=== PATIENT | female | born 1975 ===

== ENCOUNTER 2018-01-05 03:07 | Inpatient (IN) | payer MEDICAID, OTHER ==
[2018-01-05] MEDS ORDERED: Sodium Chloride 0.9% 1,000 ML IV STA ×2 (03:38→06:35)
[2018-01-05 04:19] LABS: BASO # 0.1 K/uL (0.0-0.2); BASO % 0.4 % (0.0-2.0); EOS % 0.1 % (0.0-4.0); HEMOGLOBIN 13.6 g/dL (12.0-16.0); LYMPH % 7.2 % (20.0-40.0); MEAN CELL VOLUME 83.3 fl (81.0-99.0); MEAN CORPUSCULAR HEMOGLOBIN 27.9 pg (27.0-31.0); MEAN CORPUSCULAR HGB CONC 33.5 g/dL (33.0-37.0); MEAN PLATELET VOLUME 8.8 fl (7.2-11.7); MONO # 0.4 K/uL (0.0-0.8); NEUT # 12.4 K/uL (1.8-7.0); NEUT % 89.3 % (50.0-75.0); PLATELET COUNT 249 K/uL (130-400); RBC 4.86 Mil/uL (3.80-5.20); RED CELL DISTRIBUTION WIDTH 13.7 % (11.5-14.5); WHITE BLOOD COUNT 13.9 K/uL (4.8-10.8)
[2018-01-05 04:30] LABS: ALB/GLOB RATIO 1.1 (1.0-2.1); ALBUMIN 4.4 g/dL (3.5-5.0); ALT/SGPT 36 U/L (9-52); AST/SGOT 25 U/L (14-36); BLOOD UREA NITROGEN 18 mg/dl (7-17); GFR AFRICAN-AMERICAN > 60; GFR NON-AFRICAN AMERICAN > 60; LIPASE 31 U/L (23-300)
[2018-01-05 05:10] LABS: LYMPHOCYTE 8 % (20-50); NEUTROPHIL 89 % (42-75); REACTIVE LYMPHOCYTES 3 % (0-0); TOTAL CELLS COUNTED 100
[2018-01-05 05:11] LABS: HYPOCHROMIC SLIGHT; STOMATOCYTES SLIGHT; TARGET CELLS SLIGHT
[2018-01-05 05:12] LABS: PLATELET ESTIMATE NORMAL (NORMAL)
--- NOTE | 2018-01-05 05:57 | ED PDOC ---
HPI: Abdomen Chief Complaint (Provider): Epigastric abdominal pain History Per: Patient History/Exam Limitations: no limitations Onset/Duration Of Symptoms: Hrs (Since 4pm) Outside of [place] travel?: No Current Symptoms Are (Timing): Still Present Severity: Severe Pain Scale Rating Of: 8 Location Of Pain/Discomfort: RUQ, Epigastric Quality Of Discomfort: Sharp Associated Symptoms: Nausea, Vomiting, Loss Of Appetite. denies: Fever, Chills , Diarrhea, Constipation, Urinary Symptoms Exacerbating Factors: None <Patricia Arellano - Last Filed: 01/05/18 05:59> <Obie Mauricio - Last Filed: 01/06/18 17:55> Time Seen by Provider: 01/05/18 03:14 Chief Complaint (Nursing): Abdominal Pain Additional Complaint(s): No similar in the past. PT states it began last night and she only ate breakfast yesterday. No fever/chills. (+) vomiting. (Patricia Arellano) Past Medical History Reviewed: Historical Data, Nursing Documentation, Vital Signs - Medical History PMH: No Chronic Diseases - Surgical History Surgical History: No Surg Hx - Family History Family History: States: No Known Family Hx - Living Arrangements Living Arrangements: With Family - Social History Current smoker - smoking cessation education provided: No <Patricia Arellano - Last Filed: 01/05/18 05:59> <Obie Mauricio - Last Filed: 01/06/18 17:55> Vital Signs: Last Vital Signs Temp 97.7 F 01/06/18 16:17 Pulse 78 01/06/18 16:17 Resp 18 01/06/18 16:17 BP 109/68 01/06/18 16:17 Pulse Ox 97 01/06/18 16:17 - Home Medications Home Medications: Ambulatory Orders Medication Instructions Recorded No Known Home Med 01/05/18 - Allergies Allergies/Adverse Reactions: Allergies Allergy/AdvReac Type Severity Reaction Status Date / Time almond Allergy ITCHING Verified 01/05/18 17:43 apple Allergy RASH Verified 01/05/18 03:20 carrot Allergy ITCHING Verified 01/05/18 17:43 celery Allergy ITCHING Verified 01/05/18 17:44 humphrey Allergy ITCHING Verified 01/05/18 17:44 kiwi Allergy RASH Verified 01/05/18 03:20 peach Allergy RASH Verified 01/05/18 03:20 plum Allergy ITCHING Verified 01/05/18 17:44 pollen extracts Allergy ITCHING Verified 01/05/18 17:41 Review of Systems ROS Statement: Except As Marked, All Systems Reviewed And Found Negative Constitutional: Negative for: Fever, Chills Gastrointestinal: Positive for: Nausea, Vomiting, Abdominal Pain <Patricia Arellano - Last Filed: 01/05/18 05:59> Physical Exam - Reviewed Nursing Documentation Reviewed: Yes Vital Signs Reviewed: Yes - Physical Exam Appears: Positive for: Well, Non-toxic, No Acute Distress Head Exam: Positive for: ATRAUMATIC, NORMAL INSPECTION, NORMOCEPHALIC Skin: Positive for: Normal Color, Warm, DRY Eye Exam: Positive for: Normal appearance ENT: Positive for: Normal ENT Inspection Neck: Positive for: Normal, Painless ROM Cardiovascular/Chest: Positive for: Regular Rate, Rhythm Respiratory: Positive for: CNT, Normal Breath Sounds Gastrointestinal/Abdominal: Positive for: Normal Exam, Soft, Tenderness ((+) RUQ tenderness, (+) Bowling's sign ) Back: Positive for: Normal Inspection Extremity: Positive for: Normal ROM Neurologic/Psych: Positive for: Alert, Oriented <Patricia Arellano - Last Filed: 01/05/18 05:59> - Laboratory Results Result Diagrams: 01/05/18 04:14 01/05/18 04:14 - ECG O2 Sat by Pulse Oximetry: 98 <Patricia Arellano - Last Filed: 01/05/18 05:59> - Laboratory Results Result Diagrams: 01/06/18 06:40 01/06/18 06:40 <Obie Mauricio - Last Filed: 01/06/18 17:55> Medical Decision Making <Patricia Arellano - Last Filed: 01/05/18 05:59> <Obie Mauricio - Last Filed: 01/06/18 17:55> Medical Decision Making: Labs normal. Endorsed pending (Patricia Arellano) [address] abdomen 0630 CT abdomen reveiwed. 0635 discussed the case with residential treatment specialist Dr Ramirez who will discuss with the team. [address] Davalos who will be on consult. Plans NPO Zosyn IV IVF (Obie Mauricio) Disposition - Patient ED Disposition Is Patient to be Admitted: Transfer of Care - Disposition Disposition: Transfer of Care Disposition Time: 06:12 <Patricia Arellano - Last Filed: 01/05/18 05:59> - Patient ED Disposition Is Patient to be Admitted: Yes Discussed With Dr.: Jared Atkins Doctor Will See Patient In The: ED Counseled Patient/Family Regarding: Studies Performed, Diagnosis - Pt Status Changed To: Hospital Disposition Of: Inpatient - Admit Certification Admit to Inpatient:: After my assessment, the patient will require hospitalization for at least two midnights. This is because of the severity of symptoms shown, intensity of services needed, and/or the medical risk in this patient being treated as an outpatient. - POA Present On Arrival: None <Obie Mauricio - Last Filed: 01/06/18 17:55> - Clinical Impression Clinical Impression: Abdominal pain, Acute cholecystitis - Disposition Condition: FAIR
--- NOTE | 2018-01-05 06:23 | CT ---
EXAM: CT Abdomen and Pelvis Without Intravenous Contrast CLINICAL HISTORY: 42 years old, female; Pain; Abdominal pain; Localized; Right upper quadrant (ruq); Additional info: Ruq pain, vomiting TECHNIQUE: Axial computed tomography images of the abdomen and pelvis without intravenous contrast. All CT scans at this facility use one or more dose reduction techniques, viz.: automated exposure control; ma/kV adjustment per patient size (including targeted exams where dose is matched to indication; i.e. head); or iterative reconstruction technique. 585 images are submitted. Coronal and sagittal reformatted images were created and reviewed. COMPARISON: No relevant prior studies available. FINDINGS: Lung bases: There is bibasilar atelectasis. ABDOMEN:Limitations: Absence of IV contrast decreases sensitivity for detecting vascular and visceral injury and abnormality. Liver: Unremarkable. Gallbladder and bile ducts: Gallbladder distention with multiple gallstones and possible gallbladder wall thickening. Correlation with clinical data is recommended if acute on chronic cholecystitis is clinically suspected. Pancreas: Unremarkable. No ductal dilation. Spleen: Unremarkable. No splenomegaly. Adrenals: Unremarkable. No mass. Kidneys and ureters: Unremarkable. No obstructing stones. No hydronephrosis. Stomach and bowel: Possible diverticulosis. No obstruction. No mucosal thickening.There are nonspecific fluid filled small bowel loops. These findings can represent ileus versus enteritis versus slow transit versus peristalsis. Appendix: Normal appendix. PELVIS: Bladder: There is nonspecific bladder wall thickening. This may be related to incomplete distention. Reproductive: Anteriorly displaced uterus. Bilateral ovarian follicles. ABDOMEN and PELVIS: Intraperitoneal space: Unremarkable. No free air. No significant fluid collection. Bones/joints: No acute fracture. No dislocation. Soft tissues: There is a fat-containing umbilical hernia. Vasculature: Unremarkable. No abdominal aortic aneurysm. Lymph nodes: Unremarkable. No enlarged lymph nodes. IMPRESSION: 1. Gallbladder distention with multiple gallstones and possible gallbladder wall thickening. Correlation with clinical data/LFTs is recommended if acute on chronic cholecystitis is clinically suspected.
[2018-01-05] MEDS ORDERED: Piperacillin/Tazobact 3.375 GM in Sodium Chloride 0.9% 100 ML IVPB STA (06:37)
[2018-01-05] MEDS ORDERED: Piperacillin/Tazobact 3.375 gm Inj IVPB ONE (06:50)
--- NOTE | 2018-01-05 07:44 | CP.PCM.CON ---
<Mehran Sahu - Last Filed: 01/05/18 08:06> History of Present Illness - History of Present Illness History of Present Illness: General Surgery Note for Dr. Davalos Reason for Consult: RUQ abdominal pain 42 F with no significant PMH presents to [facility] for complaint of RUQ abdominal pain. Patient was seen and evaluated in the ED. Patient states that pain began yesterday while at home. She reports sudden onset. She states that she has experienced this pain multiple times in the past. Patient states that she was not doing anything particularly when pain began and it was not associated with eating. She reports a few episods of nausea/vomtiing with NBNB emesis. She rates pain as moderate to severe. She describes pain as constant and sharp located in RUQ radiating to epigastrium and back bilaterally. She denies any allievating or aggravating factors. She denies recent illness or sick contacts. Denies fever/chills, chest pain, SOB, palpitations, diarrhea, constipation, incontinence, urinary symtpoms. PMH: denies Meds: MVM Allergy: kiwi, apple, peach PSH: x 2 FH: cholelithiasis Social: denies tobacco/EtOH/illicit drug, lives with Review of Systems - Review of Systems All systems: reviewed and no additional remarkable complaints except (as per HPI ) Past Patient History - Past Social History Smoking Status: Never Smoked - PSYCHIATRIC Hx Substance Use: No - SURGICAL HISTORY Hx Surgeries: Yes Hx Section: Yes - ANESTHESIA Hx Anesthesia: Yes Meds Allergies/Adverse Reactions: Allergies Allergy/AdvReac Type Severity Reaction Status Date / Time apple Allergy RASH Verified 01/05/18 03:20 kiwi Allergy RASH Verified 01/05/18 03:20 peach Allergy RASH Verified 01/05/18 03:20 - Medications Medications: Current Medications Piperacillin Sod/Tazobactam (Sod 3.375 gm/ Sodium Chloride) 100 mls @ 100 mls/ hr IVPB Q6 [facility] PRN Reason: Protocol Dextrose/Lactated Ringer's (Dextrose 5%/Lactated Ringer's) 1,000 mls @ 125 mls/ hr IV .Q8H [facility] Stop: 01/06/18 07:25 Morphine Sulfate (Morphine) 2 mg IVP Q4 PRN PRN Reason: Pain, severe (8-10) Physical Exam - Constitutional Appears: Non-toxic, No Acute Distress - Head Exam Head Exam: ATRAUMATIC, NORMOCEPHALIC - Eye Exam Eye Exam: EOMI, Normal appearance Pupil Exam: PERRL - ENT Exam ENT Exam: Mucous Membranes Moist - Respiratory Exam Respiratory Exam: NORMAL BREATHING PATTERN - Cardiovascular Exam Cardiovascular Exam: REGULAR RHYTHM - GI/Abdominal Exam GI & Abdominal Exam: Normal Bowel Sounds, Soft, Tenderness (RUQ). absent: Distended, Firm, Guarding, Hernia, Rebound, Rigid - Extremities Exam Extremities exam: Positive for: normal capillary refill, pedal pulses present. Negative for: calf tenderness - Back Exam Back exam: absent: CVA tenderness (L), CVA tenderness (R) - Neurological Exam Neurological exam: Alert, CN II-XII Intact, Oriented x3 - Psychiatric Exam Psychiatric exam: Normal Affect, Normal Mood - Skin Skin Exam: Dry, Intact, Normal Color, Warm Results - Vital Signs Recent Vital Signs: Last Vital Signs Temp 98.3 F 01/05/18 06:58 Pulse 80 01/05/18 06:58 Resp 16 01/05/18 06:58 BP 115/70 01/05/18 06:58 Pulse Ox 100 01/05/18 06:58 - Labs Result Diagrams: 01/05/18 04:14 01/05/18 04:14 Labs: Laboratory Results - last 24 hr 01/05/18 01/05/18 04:14 04:14 WBC 13.9 H RBC 4.86 Hgb 13.6 Hct 40.5 MCV 83.3 MCH 27.9 MCHC 33.5 RDW 13.7 Plt Count 249 MPV 8.8 Neut % (Auto) 89.3 H Lymph % (Auto) 7.2 L Hart % (Auto) 3.0 Eos % (Auto) 0.1 Baso % (Auto) 0.4 Neut # (Auto) 12.4 H Lymph # (Auto) 1.0 Hart # (Auto) 0.4 Eos # (Auto) 0.0 Baso # (Auto) 0.1 Neutrophils % (Manual) 89 H Lymphocytes % (Manual) 8 L Reactive Lymphs % 3 H Monocytes % (Manual) TEST NOT PERFORMED Platelet Estimate Normal Hypochromasia (manual) Slight Target Cells Slight Stomatocytes Slight Sodium 144 Potassium 3.8 Chloride 103 Carbon Dioxide 25 Anion Gap 20 BUN 18 H Creatinine 0.6 L Est GFR ( Amer) > 60 Est GFR (Non-Af Amer) > 60 Random Glucose 122 H Calcium 9.0 Total Bilirubin 0.5 AST 25 ALT 36 Alkaline Phosphatase 60 Total Protein 8.3 H Albumin 4.4 Globulin 3.9 Albumin/Globulin Ratio 1.1 Lipase 31 Assessment & Plan - Assessment and Plan (Free Text) Assessment: 42 F with acute cholecystitis Plan: -NPO -IV fluids -IV antibiotics -Analgesics/Anti-emetics PRN -Plan for lapacopic cholecystectomy Mon/Tu in [place] -Pre-op work up -Discussed with Dr. Anoop Sahu PGY1 <Augie Davalos - Last Filed: 01/05/18 17:09> History of Present Illness - History of Present Illness History of Present Illness: Patient was seen and examined at the bedside. Agree with resident's note above. Meds - Medications Medications: Current Medications Piperacillin Sod/Tazobactam (Sod 3.375 gm/ Sodium Chloride) 100 mls @ 100 mls/ hr IVPB Q6 [facility] PRN Reason: Protocol Last Admin: 01/05/18 11:43 Dose: 100 mls/hr Dextrose/Lactated Ringer's (Dextrose 5%/Lactated Ringer's) 1,000 mls @ 125 mls/ hr IV .Q8H [facility] Stop: 01/06/18 07:25 Last Admin: 01/05/18 09:57 Dose: 125 mls/hr Morphine Sulfate (Morphine) 2 mg IVP Q4 PRN PRN Reason: Pain, severe (8-10) Last Admin: 01/05/18 14:06 Dose: 2 mg Ondansetron HCl (Zofran Inj) 4 mg IVP Q6 PRN PRN Reason: Nausea/Vomiting Last Admin: 01/05/18 09:58 Dose: 4 mg Pantoprazole Sodium (Protonix Inj) 40 mg IVP DAILY [facility] Last Admin: 01/05/18 09:58 Dose: 40 mg Physical Exam - GI/Abdominal Exam Additional comments: soft, tender in the epigastrium and RUQ, ND, BS+, no rebound, no guarding, positive Bowling's sign, well healed scar from prior Results - Vital Signs Recent Vital Signs: Last Vital Signs Temp 98.4 F 01/05/18 16:32 Pulse 84 01/05/18 16:32 Resp 18 01/05/18 16:32 BP 115/74 01/05/18 16:32 Pulse Ox 99 01/05/18 16:32 - Labs Result Diagrams: 01/05/18 04:14 01/05/18 04:14 Labs: Laboratory Results - last 24 hr 01/05/18 01/05/18 04:14 04:14 WBC 13.9 H RBC 4.86 Hgb 13.6 Hct 40.5 MCV 83.3 MCH 27.9 MCHC 33.5 RDW 13.7 Plt Count 249 MPV 8.8 Neut % (Auto) 89.3 H Lymph % (Auto) 7.2 L Hart % (Auto) 3.0 Eos % (Auto) 0.1 Baso % (Auto) 0.4 Neut # (Auto) 12.4 H Lymph # (Auto) 1.0 Hart # (Auto) 0.4 Eos # (Auto) 0.0 Baso # (Auto) 0.1 Neutrophils % (Manual) 89 H Lymphocytes % (Manual) 8 L Reactive Lymphs % 3 H Monocytes % (Manual) TEST NOT PERFORMED Platelet Estimate Normal Hypochromasia (manual) Slight Target Cells Slight Stomatocytes Slight Sodium 144 Potassium 3.8 Chloride 103 Carbon Dioxide 25 Anion Gap 20 BUN 18 H Creatinine 0.6 L Est GFR ( Amer) > 60 Est GFR (Non-Af Amer) > 60 Random Glucose 122 H Calcium 9.0 Total Bilirubin 0.5 AST 25 ALT 36 Alkaline Phosphatase 60 Total Protein 8.3 H Albumin 4.4 Globulin 3.9 Albumin/Globulin Ratio 1.1 Lipase 31 - Imaging and Cardiology US - abdomen Status: Image reviewed by me, Report reviewed by me Assessment & Plan - Assessment and Plan (Free Text) Plan: - NPO - IV fluids - Zosyn - pain control - Zofran prn - Plan for cholecystectomy tomorrow - Will follow
--- NOTE | 2018-01-05 07:59 | CP.PCM.HP ---
History of Present Illness - History of Present Illness History of Present Illness: Chief Complaint: Epigastric and RUQ pain HPI: 42 y/o lady, no significant PMH , came in because of RUQ and epigastric pain. Patient states that for the past few months , she would wake up with some mild epigastric pain that would resolve on its own. However yesterday, at around 4 pm when she started having epigastric pain about 5/10 in intensity. She only had breakfast and no lunch except for some tea in the afternoon. The abdominal pain worsened all through the night now 8-9/10 in intensity and pain radiates to the RUQ and and to the back , accompanied by nausea and vomiting. She vomited about 5 times so she decided to come in to the ED. IN the ED , CT of the [place] showed multiple Gallstones and GB wall thickening and GB distention. WBC ct =13k. Present on Admission - Present on Admission Any Indicators Present on Admission: No Review of Systems - Review of Systems All systems: reviewed and no additional remarkable complaints except - Constitutional Constitutional: Anorexia. absent: Chills, Fever - EENT Eyes: absent: Change in Vision, Loss of Vision Ears: absent: Decreased Hearing, Ear Discharge, Ear Pain Nose/Mouth/Throat: absent: Epistaxis, Nasal Congestion, Nasal Discharge - Cardiovascular Cardiovascular: absent: Chest Pain, Chest Pain at Rest, Claudication, Diaphoresis, Dyspnea - Respiratory Respiratory: absent: Cough, Dyspnea, Hemoptysis - Gastrointestinal Gastrointestinal: Abdominal Pain, Bloating, Nausea, Vomiting. absent: Diarrhea , Hematemesis - Genitourinary Genitourinary: absent: Change in Urinary Stream, Difficulty Urinating, Dysuria - Musculoskeletal Musculoskeletal: Back Pain. absent: Abnormal Gait, Arthralgias, Muscle Weakness , Numbness - Integumentary Integumentary: absent: Rash, Skin Ulcer, Sores - Neurological Neurological: absent: Abnormal Gait, Dizziness, Focal Weakness, Headaches - Psychiatric Psychiatric: absent: Anxiety, Memory Loss, Suicidal Ideation - Endocrine Endocrine: absent: Polydipsia, Polyphagia, Polyuria - Hematologic/Lymphatic Hematologic: absent: Easy Bleeding, Easy Bruising, Lymphadenopathy Past Patient History - Infectious Disease Hx of Infectious Diseases: None - Tetanus Immunizations Tetanus Immunization: Unknown - Past Medical History & Family History Past Medical History?: No Past Family History: Reviewed and not pertinent Pertinent Family History: Mother : HTN - Past Social History Smoking Status: Never Smoked Chewing Tobacco Use: No Cigar Use: No Alcohol: None Drugs: Denies Home Situation {Lives}: With Family Domestic Violence: Negative - CARDIAC Hx Cardiac Disorders: No - PULMONARY Hx Respiratory Disorders: No - NEUROLOGICAL Hx Neurological Disorder: No - HEENT Hx HEENT Problems: No - RENAL Hx Chronic Kidney Disease: No - ENDOCRINE/METABOLIC Hx Endocrine Disorders: No - HEMATOLOGICAL/ONCOLOGICAL Hx Blood Disorders: No - INTEGUMENTARY Hx Dermatological Problems: No - MUSCULOSKELETAL/RHEUMATOLOGICAL Hx Musculoskeletal Disorders: No - GASTROINTESTINAL Hx Gastrointestinal Disorders: No - GENITOURINARY/GYNECOLOGICAL Hx Genitourinary Disorders: No - PSYCHIATRIC Hx Psychophysiologic Disorder: No Hx Substance Use: No - SURGICAL HISTORY Hx Surgeries: Yes Hx Section: Yes - ANESTHESIA Hx Anesthesia: Yes Hx Anesthesia Reactions: No Meds Allergies/Adverse Reactions: Allergies Allergy/AdvReac Type Severity Reaction Status Date / Time apple Allergy RASH Verified 01/05/18 03:20 kiwi Allergy RASH Verified 01/05/18 03:20 peach Allergy RASH Verified 01/05/18 03:20 Physical Exam - Constitutional Appears: Non-toxic, No Acute Distress - Head Exam Head Exam: ATRAUMATIC, NORMAL INSPECTION, NORMOCEPHALIC - Eye Exam Eye Exam: EOMI, Normal appearance, PERRL Pupil Exam: NORMAL ACCOMODATION - ENT Exam ENT Exam: Mucous Membranes Dry, Normal External Ear Exam - Neck Exam Neck exam: Positive for: Full Rom. Negative for: Meningismus - Respiratory Exam Respiratory Exam: NORMAL BREATHING PATTERN. absent: Rales, Wheezes, Respiratory Distress - Cardiovascular Exam Cardiovascular Exam: REGULAR RHYTHM, +S1, +S2 - GI/Abdominal Exam GI & Abdominal Exam: Normal Bowel Sounds, Soft, Tenderness. absent: Guarding - Extremities Exam Extremities exam: Positive for: full ROM, normal capillary refill, normal inspection, pedal pulses present. Negative for: calf tenderness, pedal edema - Back Exam Back exam: FULL ROM, NORMAL INSPECTION. absent: CVA tenderness (L), CVA tenderness (R), paraspinal tenderness, vertebral tenderness - Neurological Exam Neurological exam: Alert, CN II-XII Intact, Oriented x3, Reflexes Normal - Psychiatric Exam Psychiatric exam: Normal Affect, Normal Mood - Skin Skin Exam: Dry, Intact, Normal Color, Warm Results - Vital Signs Recent Vital Signs: Last Vital Signs Temp 98.3 F 04/22/18 06:58 Pulse 80 01/05/18 06:58 Resp 16 01/05/18 06:58 BP 115/70 01/05/18 06:58 Pulse Ox 100 01/05/18 06:58 - Labs Result Diagrams: 01/05/18 04:14 01/05/18 04:14 Labs: Laboratory Results - last 24 hr 01/05/18 01/05/18 04:14 04:14 WBC 13.9 H RBC 4.86 Hgb 13.6 Hct 40.5 MCV 83.3 MCH 27.9 MCHC 33.5 RDW 13.7 Plt Count 249 MPV 8.8 Neut % (Auto) 89.3 H Lymph % (Auto) 7.2 L [place] % (Auto) 3.0 Eos % (Auto) 0.1 Baso % (Auto) 0.4 Neut # (Auto) 12.4 H Lymph # (Auto) 1.0 [place] # (Auto) 0.4 Eos # (Auto) 0.0 Baso # (Auto) 0.1 Neutrophils % (Manual) 89 H Lymphocytes % (Manual) 8 L Reactive Lymphs % 3 H Monocytes % (Manual) TEST NOT PERFORMED Platelet Estimate Normal Hypochromasia (manual) Slight Target Cells Slight Stomatocytes Slight Sodium 144 Potassium 3.8 Chloride 103 Carbon Dioxide 25 Anion Gap 20 BUN 18 H Creatinine 0.6 L Est GFR ( Amer) > 60 Est GFR (Non-Af Amer) > 60 Random Glucose 122 H Calcium 9.0 Total Bilirubin 0.5 AST 25 ALT 36 Alkaline Phosphatase 60 Total Protein 8.3 H Albumin 4.4 Globulin 3.9 Albumin/Globulin Ratio 1.1 Lipase 31 - EKG Data EKG Interpreted by: Myself EKG shows normal: Sinus rhythm Rate: Normal - Imaging and Cardiology CT scan - abdomen Status: Image reviewed by me, Report reviewed by me Additional comment: Gallbladder distention with multiple gallstones and possible gallbladder wall thickening. Correlation with clinical data/LFTs is recommended if acute on chronic cholecystitis is clinically suspected. Assessment & Plan (1) Acute calculous cholecystitis Status: Acute Comment: CT scan of abd : Gallbladder distention with multiple gallstones and possible gallbladder. wall thickening. Admit pt to Med Surg. Keep NPO. IVF hydration. Surgery consult: Dr Kofman. Pain mgt with IV Morphine prn. Start IV Zosyn. Pt has good cardiac function - greater than 4 mets , walks 4 miles daily without any sxs. Lowcardiac risk for surgery. (2) DVT prophylaxis Status: Acute Comment: SCD for now as pt may go for surgery Decision To Admit - Pt Status Changed To: Hospital Disposition Of: Inpatient - Admit Certification Admit to Inpatient:: After my assessment, the patient will require hospitalization for at least two midnights. This is because of the severity of symptoms shown, intensity of services needed, and/or the medical risk in this patient being treated as an outpatient. - . Bed Request Type: Med/Surg Admitting Physician: Renetta Grimes
--- NOTE | 2018-01-05 09:18 | US ---
HISTORY: RUQ pain, vomiting COMPARISON: Preceding CT scan of the abdomen pelvis performed approximately 4 hours prior. TECHNIQUE: Sonographic evaluation of the right upper quadrant of the abdomen. FINDINGS: LIVER: Measures 13.4 cm in length. Normal echogenicity of the liver parenchyma. No mass. No intrahepatic bile duct dilatation. GALLBLADDER: Cholelithiasis with gallbladder wall thickening common per without pericholecystic fluid. Sonographic Bowling's sign was not elicited. COMMON BILE DUCT: Measures 5 mm. No stones. No dilatation. PANCREAS: Unremarkable as visualized. No mass. No ductal dilatation. RIGHT KIDNEY: Measures 11.4 x 4.5 x 4.2 cm in length. Normal echogenicity. No calculus, mass, or hydronephrosis. AORTA: No aneurysmal dilatation. IVC: Unremarkable. OTHER FINDINGS: None . IMPRESSION: Cholelithiasis with gallbladder wall thickening, but without pericholecystic fluid. Sonographic Bowling's sign was not elicited. Findings are equivocal for acute cholecystitis. Nuclear medicine HIDA scan can be obtained to further evaluate patency of the cystic duct as clinically warranted.
[2018-01-05] MEDS: Piperacillin/Tazobact 3.375 GM in Sodium Chloride 0.9% 100 ML IVPB SCH ×4 (09:54→21:32)
[2018-01-05] MEDS: Dextrose 5%/Lactated Ringer's 1,000 ML IV SCH ×3 (09:57→23:30)
--- NOTE | 2018-01-05 10:40 | CARD ---
APPROVED REPORT EKG Measurement Heart [id number] <Conclusion> Normal sinus rhythm Normal ECG
[2018-01-06] MEDS: Piperacillin/Tazobact 3.375 GM in Sodium Chloride 0.9% 100 ML IVPB SCH ×4 (03:46→21:40)
[2018-01-06] MEDS: Dextrose 5%/Lactated Ringer's 1,000 ML IV SCH (03:47)
[2018-01-06 07:29] LABS: BASO % 0.2 % (0.0-2.0); EOS # 0.3 K/uL (0.0-0.7); HEMOGLOBIN 13.1 g/dL (12.0-16.0); LYMPH # 2.8 K/uL (1.0-4.3); LYMPH % 20.4 % (20.0-40.0); MEAN CELL VOLUME 83.9 fl (81.0-99.0); MEAN CORPUSCULAR HEMOGLOBIN 27.8 pg (27.0-31.0); MEAN CORPUSCULAR HGB CONC 33.2 g/dL (33.0-37.0); MEAN PLATELET VOLUME 9.5 fl (7.2-11.7); MONO # 1.2 K/uL (0.0-0.8); NEUT # 9.3 K/uL (1.8-7.0); NEUT % 68.4 % (50.0-75.0); RBC 4.72 Mil/uL (3.80-5.20); WHITE BLOOD COUNT 13.6 K/uL (4.8-10.8)
[2018-01-06 07:36] LABS: INR 1.1 (0.9-1.2); PARTIAL THROMBOPLASTIN TIME 30.3 Seconds (25.6-37.1); PROTHROMBIN TIME 12.4 Seconds (9.8-13.1)
[2018-01-06 07:46] LABS: ALB/GLOB RATIO 1.1 (1.0-2.1); ALBUMIN 3.8 g/dL (3.5-5.0); ALT/SGPT 35 U/L (9-52); AST/SGOT 24 U/L (14-36); BLOOD UREA NITROGEN 7 mg/dl (7-17); CALCIUM 8.5 mg/dL (8.4-10.2); GFR AFRICAN-AMERICAN > 60; GFR NON-AFRICAN AMERICAN > 60
[2018-01-06] MEDS ORDERED: Midazolam 2 MG/2 ML VIAL ONE (11:38)
[2018-01-06] MEDS ORDERED: Propofol 10 mg/ml Inj (20 ML) ONE (11:38)
[2018-01-06] MEDS ORDERED: Succinylcholine 200 mg/10 ml Inj IV ONE (11:39)
[2018-01-06] MEDS ORDERED: Lidocaine 4% (Laryng-O-Jet) Kit MM ONE (11:39)
[2018-01-06] MEDS ORDERED: Lidocaine 1% 5ml Abboject IV ONE (11:39)
[2018-01-06] MEDS ORDERED: Lactated Ringer's 1,000 ML IV ONE ×2 (11:45→14:56)
[2018-01-06] MEDS ORDERED: Rocuronium 10 mg/ml (5 ml) ONE (11:52)
[2018-01-06] MEDS ORDERED: Bupivacaine 0.5% Inj(30mL) ONE (12:11)
[2018-01-06] MEDS ORDERED: Lidocaine 1% Inj (20ml) IJ ONE ×2 (12:14→13:23)
--- NOTE | 2018-01-06 12:46 | CP.PCM.PN ---
Subjective - Date & Time of Evaluation Date of Evaluation: 01/06/18 Time of Evaluation: 12:46 - Subjective Subjective: mild discomfort in RUQ for LAP JAQUELINE today NPO no complaints HD stable NAD Objective - Vital Signs/Intake and Output Vital Signs (last 24 hours): Temp Pulse Resp BP Pulse Ox 98.6 F 73 20 105/70 98 01/06/18 08:07 01/06/18 08:07 01/06/18 08:07 01/06/18 08:07 01/06/18 08:07 Intake and Output: 01/06/18 01/06/18 06:59 18:59 Intake Total 400 Balance 400 - Medications Medications: Current Medications Piperacillin Sod/Tazobactam (Sod 3.375 gm/ Sodium Chloride) 100 mls @ 100 mls/ hr IVPB Q6 [place] PRN Reason: Protocol Last Admin: 01/06/18 09:39 Dose: 100 mls/hr Morphine Sulfate (Morphine) 2 mg IVP Q4 PRN PRN Reason: Pain, severe (8-10) Last Admin: 01/05/18 14:06 Dose: 2 mg Ondansetron HCl (Zofran Inj) 4 mg IVP Q6 PRN PRN Reason: Nausea/Vomiting Last Admin: 01/05/18 09:58 Dose: 4 mg Pantoprazole Sodium (Protonix Inj) 40 mg IVP DAILY [place] Last Admin: 01/06/18 09:40 Dose: 40 mg - Labs Labs: 01/06/18 06:40 01/06/18 06:40 PT 12.4 Seconds (9.8-13.1) 01/06/18 06:40 INR 1.1 (0.9-1.2) 01/06/18 06:40 APTT 30.3 Seconds (25.6-37.1) 01/06/18 06:40 - Additional Findings Additional findings: General: awake, alert HEENT: NCAT, PERRL, EOMI HEART: RRR, S1, S2 no MRG LUNG: CTAB, no WRR ABD: soft, MILD TENDERNESS RUQ, ND, no mass, no HSM EXT: warm, well perfused NEURO: awake, alert SKIN: warm, dry PSYCH: normal mood, normal affect Assessment and Plan - Assessment and Plan (Free Text) Plan: 42 y/o lady, no significant PMH , came in because of RUQ and epigastric pain. Patient states that for the past few months , she would wake up with some mild epigastric pain that would resolve on its own. However yesterday, at around 4 pm when she started having epigastric pain about 5/10 in intensity. She only had breakfast and no lunch except for some tea in the afternoon. The abdominal pain worsened all through the night now 8-9/10 in intensity and pain radiates to the RUQ and and to the back , accompanied by nausea and vomiting. She vomited about 5 times so she decided to come in to the ED. IN the ED , CT of the [facility] showed multiple Gallstones and GB wall thickening and GB distention. WBC ct =13k. (1) Acute calculous cholecystitis Status: Acute Comment: CT scan of abd : Gallbladder distention with multiple gallstones and possible gallbladder. wall thickening. Admit pt to Med Surg. Keep NPO. IVF hydration. Surgery consult: Dr Davalos. Pain mgt with IV Morphine prn. Start IV Zosyn. Pt has good cardiac function - greater than 4 mets , walks 4 miles daily without any sxs. Lowcardiac risk for surgery. FOR LAP JAQUELINE today (2) DVT prophylaxis Status: Acute Comment: SCD for now as pt may go for surgery
[2018-01-06] MEDS ORDERED: Lactated Ringer's 500 ML IV ONE (12:50)
[2018-01-06] MEDS ORDERED: HYDROmorphone 0.5 mg/0.5 ml ISec IVP PRN (13:33)
--- NOTE | 2018-01-06 13:42 | PCM.SURG1 ---
Surgeon's Initial Post Op Note - Surgeon's Notes Surgeon: MD Anoop Engine Head Repairer: Stephanie, PGY2. BRITTA [place]aya, PGY1. Pre-Operative Diagnosis: Acute cholecystitis Operative Findings: inflammed gallbladder Post-Operative Diagnosis: Acute cholecystitis Operation Performed: Laparoscopic cholecystectomy Specimen/Specimens Removed: Gallbladder Estimated Blood Loss: EBL {In ML}: 5 Date of Surgery/Procedure: 01/06/18 Time of Surgery/Procedure: 11:30
[2018-01-06] MEDS ORDERED: Oxycodone/Acetaminophen 5/325 mg Tab PO PRN (13:50)
--- NOTE | 2018-01-06 14:39 | OP ---
PROCEDURE DATE: PREOPERATIVE DIAGNOSIS: Acute cholecystitis. POSTOPERATIVE DIAGNOSIS: Acute cholecystitis. PROCEDURE: Laparoscopic cholecystectomy. SURGEON: Augie Davalos MD BROOMCORN THRESHER: TYPE OF ANESTHESIA: General endotracheal intubation. IV FLUID INTAKE: Crystalloids. ESTIMATED BLOOD LOSS: 20 mL. INTRAOPERATIVE FINDINGS: Acute cholecystitis. SPECIMENS: Gallbladder with stones. BRIEF HISTORY: Ms. Darling is a very pleasant 42-year-old female who came to the hospital complaining of epigastric right upper quadrant abdominal pain and upon further investigation was found to have acute cholecystitis. All the risks and benefits of the procedure were explained to the patient and with the patient having a full understanding of all the risks and benefits involved, informed consent was obtained and the patient was taken to the operating room for above-stated procedure. DESCRIPTION OF PROCEDURE: The patient was brought into the operating room and placed supine on the operating room table. Bilateral Flowtron boots were applied to the patient's lower extremities. After successful induction of anesthesia and successful endotracheal intubation by the anesthesia team, the patient's abdomen was prepped with ChloraPrep stick and draped in a standard surgical fashion. Prior to the beginning of the procedure, a time-out was called in the room and everyone in the room were in agreement. Using Veress needle, the patient's abdomen was entered at the umbilicus and pneumoperitoneum was achieved with good opening pressures. Once this was accomplished, using an 11 blade scalpel knife, approximately 1-cm incision was made longitudinally in umbilicus and subsequent to that, an 11-mm trocar was introduced into the patient's abdomen. At this point in time, 5-mm 0-degree scope was introduced into the patient's abdomen and the abdomen was inspected. We immediately were able to visualize the gallbladder that appeared to be distended and inflamed. Then attention was turned to the subxiphoid area. Using 11-blade scalpel knife, 5-mm incision was made in a transverse fashion and subsequent to that, 5-mm trocar was introduced into the patient's abdomen. Now attention was turned to the right side of the patient's abdomen. Using an 11 blade scalpel knife, two 5-mm incisions were made in the right side of the patient's abdomen with an 11 blade knife and subsequent to that, another two 5-mm trocars were introduced into the patient's abdomen. At this point in time, using graspers, the gallbladder was grasped to the fundus and infundibulum, and using [place] dissector, cystic duct and cystic artery were dissected out and critical view of safety was achieved. At this point in time, cystic duct was clipped with 2 clips proximal and one distal and transected with laparoscopic scissors. Same thing was done for the cystic artery; it was clipped with 2 clips proximal and one distal, and transected with laparoscopic scissors. At this point in time, gallbladder was dissected off the gallbladder fossa using hook electrocautery. Once the gallbladder was completely freed up from the gallbladder fossa, EndoCatch bag was introduced into the patient's abdomen. Gallbladder was placed inside of the bag and the bag was closed. At this point in time, gallbladder fossa was inspected for hemostasis. Hemostasis was achieved with hook electrocautery. Subsequent to that, the patient's abdominal cavity and gallbladder fossa were copiously irrigated and the fluid was suctioned out. Once this was accomplished, an 11-mm trocar together with the EndoCatch bag and gallbladder were removed from the patient's abdomen and passed off to the [facility] as a specimen. Fascial layer at the umbilical port site was closed with three interrupted 0 Vicryl sutures on UR-5 and UR-6 needles. Subsequent to that, the patient's abdomen was fully de-sufflated. The rest of the trocars were removed from the patient's abdomen and the skin was closed with 4-0 Monocryl suture in a running subcuticular fashion. At the end of the procedure, incision sites were infiltrated with Marcaine anesthetic. The patient's abdomen was washed and dried, and Dermabond was applied to the side of the incisions. The patient was successfully extubated by the anesthesia team, transferred to the [facility], and taken to the recovery room in a stable condition. At the end of the procedure, all instrument counts, needles, and sponges were correct. Augie Davalos MD
[2018-01-06 16:18] VITALS: RESP 18
[2018-01-07] MEDS: Lactated Ringer's 1,000 ML IV SCH ×2 (02:44→04:10)
[2018-01-07] MEDS: Piperacillin/Tazobact 3.375 GM in Sodium Chloride 0.9% 100 ML IVPB SCH ×2 (04:10→09:37)
[2018-01-07 07:05] LABS: HEMOGLOBIN 11.3 g/dL (12.0-16.0); MEAN CELL VOLUME 83.7 fl (81.0-99.0); MEAN CORPUSCULAR HEMOGLOBIN 27.8 pg (27.0-31.0); MEAN CORPUSCULAR HGB CONC 33.2 g/dL (33.0-37.0); RBC 4.09 Mil/uL (3.80-5.20); RED CELL DISTRIBUTION WIDTH 13.4 % (11.5-14.5); WHITE BLOOD COUNT 12.5 K/uL (4.8-10.8)
[2018-01-07 07:33] LABS: BLOOD UREA NITROGEN 8 mg/dl (7-17); CALCIUM 8.3 mg/dL (8.4-10.2); GFR AFRICAN-AMERICAN > 60; GFR NON-AFRICAN AMERICAN > 60
--- NOTE | 2018-01-07 07:54 | CP.PCM.PN ---
Subjective - Date & Time of Evaluation Date of Evaluation: 01/07/18 Time of Evaluation: 07:30 - Subjective Subjective: General Surgery Note for Dr. Davalos Patient seen and examined at bedside. No acute event overnight. She is s/p Laparoscopic cholecystectomy POD#1. Patient is complaining of mild pain near surgical sites. Denies fever/chills or nausea/vomiting. Passing gas and tolerating diet. No other complaints at this time. Objective - Vital Signs/Intake and Output Vital Signs (last 24 hours): Temp Pulse Resp BP Pulse Ox 98.1 F 83 18 103/67 97 01/07/18 03:24 01/07/18 03:24 01/07/18 03:24 01/07/18 03:24 01/07/18 03:24 - Medications Medications: Current Medications Piperacillin Sod/Tazobactam (Sod 3.375 gm/ Sodium Chloride) 100 mls @ 100 mls/ hr IVPB Q6 [place] PRN Reason: Protocol Last Admin: 01/07/18 04:10 Dose: 100 mls/hr Lactated Ringer's (Lactated Ringer's) 1,000 mls @ 100 mls/hr IV .Q10H [place] Last Admin: 01/07/18 04:10 Dose: 100 mls/hr Morphine Sulfate (Morphine) 2 mg IVP Q4 PRN PRN Reason: Pain, severe (8-10) Last Admin: 01/05/18 14:06 Dose: 2 mg Ondansetron HCl (Zofran Inj) 4 mg IVP Q6 PRN PRN Reason: Nausea/Vomiting Last Admin: 01/05/18 09:58 Dose: 4 mg Oxycodone/Acetaminophen (Percocet 5/325 Mg Tab) 1 tab PO Q4 PRN PRN Reason: Pain, severe (8-10) Stop: 01/09/18 13:51 Last Admin: 01/06/18 21:50 Dose: 1 tab Pantoprazole Sodium (Protonix Inj) 40 mg IVP DAILY [place] Last Admin: 01/06/18 09:40 Dose: 40 mg - Labs Labs: 01/07/18 06:30 01/07/18 06:30 PT 12.4 Seconds (9.8-13.1) 01/06/18 06:40 INR 1.1 (0.9-1.2) 01/06/18 06:40 APTT 30.3 Seconds (25.6-37.1) 01/06/18 06:40 - Constitutional Appears: No Acute Distress - Head Exam Head Exam: ATRAUMATIC, NORMOCEPHALIC - Eye Exam Eye Exam: Normal appearance - ENT Exam ENT Exam: Mucous Membranes Moist - Respiratory Exam Respiratory Exam: NORMAL BREATHING PATTERN - Cardiovascular Exam Cardiovascular Exam: REGULAR RHYTHM - GI/Abdominal Exam GI & Abdominal Exam: Soft, Normal Bowel Sounds. absent: Distended, Firm, Guarding, Rigid, Tenderness, Rebound Additional comments: surgical sites clean, dry, and intact - Extremities Exam Extremities Exam: Normal Capillary Refill - Neurological Exam Neurological Exam: Alert, Awake, CN II-XII Intact, Normal Gait, Oriented x3 - Psychiatric Exam Psychiatric exam: Normal Affect, Normal Mood - Skin Skin Exam: Dry, Intact, Normal Color, Warm Assessment and Plan - Assessment and Plan (Free Text) Assessment: 42 F s/p laparoscopic cholecystectomy POD#1 Plan: -Regular diet -Clear for discharge from surgical standpoint -Augmentin for 5 days -Keep area clean and dry -Follow up as outpatient with Dr. Davalos in 1-2 weeks -Discussed with Dr. Anoop Sahu PGY1
[2018-01-07 08:39] VITALS: BP 109/72; PULSE 68; TEMP 98.6; O2SAT 96
--- NOTE | 2018-01-07 11:29 | CP.PCM.DIS ---
Provider - Provider Date of Admission: 01/05/18 06:37 Attending physician: Jared Atkins Time Spent in preparation of Discharge (in minutes): 30 Diagnosis - Discharge Diagnosis (1) Acute calculous cholecystitis Status: Acute Hospital Course - Lab Results Lab Results: Most Recent Lab Values WBC 12.5 K/uL (4.8-10.8) H 01/07/18 06:30 RBC 4.09 Mil/uL (3.80-5.20) 01/07/18 06:30 Hgb 11.3 g/dL (12.0-16.0) L 01/07/18 06:30 Hct 34.2 % (34.0-47.0) 01/07/18 06:30 MCV 83.7 fl (81.0-99.0) 01/07/18 06:30 MCH 27.8 pg (27.0-31.0) 01/07/18 06:30 MCHC 33.2 g/dL (33.0-37.0) 01/07/18 06:30 RDW 13.4 % (11.5-14.5) 01/07/18 06:30 Plt Count 189 K/uL (130-400) 01/07/18 06:30 MPV 9.5 fl (7.2-11.7) 01/06/18 06:40 Neut % (Auto) 68.4 % (50.0-75.0) 01/06/18 06:40 Lymph % (Auto) 20.4 % (20.0-40.0) 01/06/18 06:40 [place] % (Auto) 9.0 % (0.0-10.0) 01/06/18 06:40 Eos % (Auto) 2.0 % (0.0-4.0) 01/06/18 06:40 Baso % (Auto) 0.2 % (0.0-2.0) 01/06/18 06:40 Neut # (Auto) 9.3 K/uL (1.8-7.0) H 01/06/18 06:40 Lymph # (Auto) 2.8 K/uL (1.0-4.3) 01/06/18 06:40 [place] # (Auto) 1.2 K/uL (0.0-0.8) H 01/06/18 06:40 Eos # (Auto) 0.3 K/uL (0.0-0.7) 01/06/18 06:40 Baso # (Auto) 0.0 K/uL (0.0-0.2) 01/06/18 06:40 Neutrophils % (Manual) 89 % (42-75) H 01/05/18 04:14 Lymphocytes % (Manual) 8 % (20-50) L 01/05/18 04:14 Reactive Lymphs % 3 % (0-0) H 01/05/18 04:14 Monocytes % (Manual) TEST NOT PERFORMED 01/05/18 04:14 Platelet Estimate Normal (NORMAL) 01/05/18 04:14 Hypochromasia (manual) Slight 01/05/18 04:14 Target Cells Slight 01/05/18 04:14 Stomatocytes Slight 01/05/18 04:14 PT 12.4 Seconds (9.8-13.1) 01/06/18 06:40 INR 1.1 (0.9-1.2) 01/06/18 06:40 APTT 30.3 Seconds (25.6-37.1) 01/06/18 06:40 Sodium 140 mmol/l (132-148) 01/07/18 06:30 Potassium 3.3 MMOL/L (3.6-5.0) L 01/07/18 06:30 Chloride 104 mmol/L (98-107) 01/07/18 06:30 Carbon Dioxide 29 mmol/L (22-30) 01/07/18 06:30 Anion Gap 10 (10-20) 01/07/18 06:30 BUN 8 mg/dl (7-17) 01/07/18 06:30 Creatinine 0.7 mg/dl (0.7-1.2) 01/07/18 06:30 Est GFR ( Amer) > 60 01/07/18 06:30 Est GFR (Non-Af Amer) > 60 01/07/18 06:30 Random Glucose 84 mg/dL (65-105) 01/07/18 06:30 Calcium 8.3 mg/dL (8.4-10.2) L 01/07/18 06:30 Total Bilirubin 1.3 mg/dl (0.2-1.3) 01/06/18 06:40 AST 24 U/L (14-36) 01/06/18 06:40 ALT 35 U/L (9-52) 01/06/18 06:40 Alkaline Phosphatase 46 U/L (38-126) 01/06/18 06:40 Total Protein 7.3 G/DL (6.3-8.2) 01/06/18 06:40 Albumin 3.8 g/dL (3.5-5.0) 01/06/18 06:40 Globulin 3.5 gm/dL (2.2-3.9) 01/06/18 06:40 Albumin/Globulin Ratio 1.1 (1.0-2.1) 01/06/18 06:40 Lipase 31 U/L (23-300) 01/05/18 04:14 Blood Type O POSITIVE 01/06/18 06:40 Blood Type Confirm O POSITIVE 01/06/18 09:10 Antibody Screen Negative 01/06/18 06:40 BBK History Checked No verified bt 01/06/18 06:40 - Hospital Course Hospital Course: 42 y/o lady, no significant PMH , came in because of RUQ and epigastric pain. Patient states that for the past few months , she would wake up with some mild epigastric pain that would resolve on its own. However yesterday, at around 4 pm when she started having epigastric pain about 5/10 in intensity. She only had breakfast and no lunch except for some tea in the afternoon. The abdominal pain worsened all through the night now 8-9/10 in intensity and pain radiates to the RUQ and and to the back , accompanied by nausea and vomiting. She vomited about 5 times so she decided to come in to the ED. IN the ED , CT of the [facility] showed multiple Gallstones and GB wall thickening and GB distention. WBC ct =13k. (1) Acute calculous cholecystitis Status: Acute Comment: CT scan of abd : Gallbladder distention with multiple gallstones and possible gallbladder. wall thickening. Admit pt to Med Surg. Keep NPO. IVF hydration. Surgery consult: Dr Davalos. Pain mgt with IV Morphine prn. Start IV Zosyn. Pt has good cardiac function - greater than 4 mets , walks 4 miles daily without any sxs. Low cardiac risk for surgery. Pt had lap chas yesterday, doing well, pain controlled. stable to be discharged home with follow up with PCP and Surgery in one week. Discharge Exam - Head Exam Additional comments: General: awake, alert HEENT: NCAT, PERRL, EOMI HEART: RRR, S1, S2 no MRG LUNG: CTAB, no WRR ABD: soft, NT, ND, no mass, no HSM EXT: warm, well perfused NEURO: awake, alert SKIN: warm, dry PSYCH: normal mood, normal affect Discharge Plan - Discharge Medications Prescriptions: Amoxicillin/Clavulanate [Augmentin 875 MG-125 MG] 1 tab PO BID #10 tab Lactobacillus Acidophilus [Acidophilus Lactobacillus] 1 cap PO BID #10 capsule - Follow Up Plan Condition: FAIR Disposition: HOME/ ROUTINE Instructions: Cholecystectomy, Laparoscopic Surgery Additional Instructions: hacer myriam con el cirugano y rosas primario dentro de 1 semana Referrals: Augie Davalos MD [Staff Provider] -
== END 2018-01-07 12:23 | disposition home or self-care (01) | DRG 419 ==
LOC: H.ER 03:07 → H.ERHOLD 06:37 → H.MEDSURG1 08:49
PROVIDERS: ADMIT Internal Medicine; ATTEND Internal Medicine
PROC: 0FT44ZZ Resection of Gallbladder, Percutaneous Endoscopic Approach (ICD-10-PCS; principal; 2018-01-05)
DX: K80.00 Calculus of gallbladder with acute cholecystitis without obstruction (principal); Z82.49 Family history of ischemic heart disease and other diseases of the circulatory system; Z91.018 Allergy to other foods